=== PATIENT | female | born 1980 | race African-American/Black ===

== ENCOUNTER 2017-02-02 14:23 | Outpatient (CLI) | payer OTHER ==
[~2017-02-02] VITALS: Ht 175.3 cm; Wt 68.2 kg
[2017-02-02 14:38] LABS: DAU SCREEN DISCLAIMER
== END 2017-02-02 16:01 | disposition home or self-care (01) ==
LOC: LDOP 14:23
PROVIDERS: ATTEND Obstetrics & Gynecology Gynecology
DX: O09.523 Supervision of elderly multigravida, third trimester (principal); O26.893 Other specified pregnancy related conditions, third trimester; O99.343 Other mental disorders complicating pregnancy, third trimester; F32.9 Major depressive disorder, single episode, unspecified; R10.9 Unspecified abdominal pain; Z3A.34 34 weeks gestation of pregnancy
CPT/HCPCS: 59025; 80307; 81001; 87086; 99201; G0463; G0479

== ENCOUNTER → 2017-05-15 | Outpatient (CLI) | payer OTHER, MEDICAID ==
[~2017-05-15] MED LIST: IBUP-1222 PO; OXYC-302 PO; PREN1TAB69 PO
== END | disposition home or self-care (01) ==
LOC: PETCFH 10:32
PROVIDERS: ATTEND Nurse Practitioner Primary Care
DX: E05.90 Thyrotoxicosis, unspecified without thyrotoxic crisis or storm (principal)
CPT/HCPCS: 78013; A9516

== ENCOUNTER 2017-11-26 21:03 | Emergency (ER) | payer MEDICAID, OTHER ==
[~2017-11-26] VITALS: Ht 175.3 cm; Wt 51.0 kg
[2017-11-26 21:07] VITALS: BP 94/70
[2017-11-26] MEDS ORDERED: COLCHICINE 0.6 MG TABLET ONE (21:55)
[2017-11-26] MEDS ORDERED: INDOMETHACIN 50 MG CAPSULE ONE (21:55)
[2017-11-26] MEDS ORDERED: INDOMETHACIN 50 MG CAPSULE PO ONE (22:00)
[2017-11-26] MEDS ORDERED: COLCHICINE 0.6 MG TABLET PO ONE (22:00)
== END 2017-11-26 22:23 | disposition home or self-care (01) ==
LOC: ED 22:16
DX: M79.671 Pain in right foot (principal)
CPT/HCPCS: 99283